=== PATIENT | male | born 1940 | race Caucasian/White ===

== ENCOUNTER 2020-12-09 07:43 | Emergency (ER) | payer OTHER ==
[~2020-12-09] VITALS: Ht 177.8 cm; Wt 83.9 kg
[~2020-12-09 07:43] MED LIST: BACTRIM DS TAB1 EACH PO; FLOMAX0.4 MG PO; HYDROCODONE-AP1 EAC6 PO; KEFLEX500 MG PO; SYNTHROID100 MCG
[2020-12-09] MEDS ORDERED: LISINOPRIL10 MG PO (07:55)
[2020-12-09] MEDS ORDERED: LUPRON DEPOT11.25 MG IM (07:56)
[2020-12-09] MEDS ORDERED: XGEVA120 MG/1.7 SUBQ (07:57)
[2020-12-09] MEDS ORDERED: XTANDI40 MG PO (07:58)
[2020-12-09] MEDS ORDERED: [UNRECOGNIZED DRUG - OTHER] (08:00)
[2020-12-09] MEDS ORDERED: AFRIN15 ML NASAL (08:28)
[2020-12-09 08:45] VITALS: BP 162/70
== END 2020-12-09 08:44 | disposition home or self-care (01) ==
LOC: M.ERS 07:43
DX: R04.0 Epistaxis (principal); I10 Essential (primary) hypertension; E03.9 Hypothyroidism, unspecified; Z85.830 Personal history of malignant neoplasm of bone

== ENCOUNTER 2020-12-11 06:59 | Emergency (ER) | payer OTHER ==
[~2020-12-11] VITALS: Ht 177.8 cm; Wt 83.9 kg
[~2020-12-11 06:59] MED LIST changes: +AFRIN15 ML NASAL; +LISINOPRIL10 MG PO; +LUPRON DEPOT11.25 MG IM; +XGEVA120 MG/1.7 SUBQ; +XTANDI40 MG PO; +[UNRECOGNIZED DRUG - OTHER]
[2020-12-11 07:51] LABS: ABSOLUTE LYMPHOCYTES 0.7 thou/uL (0.8-5.3); ABSOLUTE MONOCYTES 0.7 thou/uL (0.0-1.2); ABSOLUTE NEUTROPHILS 4.4 thou/uL (1.6-8.1); BASOPHILS 0.8 %; EOSINOPHILS 0.9 %; HEMOGLOBIN 10.2 gm/dL (14.0-18.0); LYMPHOCYTES 11.5 %; MCH 32.5 pg (26.0-34.0); MCV 95.7 fL (80.0-100.0); MONOCYTES 11.6 %; MPV 7.8 fl. (7.2-11.1); NUCLEATED RBCS 0 /100WBC; PLATELET COUNT* 68 thou/uL (150-400); POLYS 75.2 %; RBC 3.13 mil/uL (4.50-6.00); RDW-CV 17.2 % (10.5-14.5); WBC 5.8 thou/uL (4.0-11.0)
[2020-12-11 08:03] LABS: CALCIUM 8.5 mg/dL (8.5-10.1); CREATININE 1.3 mg/dL (0.6-1.3); POTASSIUM 4.3 mmol/L (3.5-5.1)
[2020-12-11 08:13] LABS: ALBUMIN 3.1 g/dL (3.4-5.0); TOTAL BILIRUBIN 0.4 mg/dL (<0.1-1.0); TOTAL PROTEIN 6.4 g/dL (6.4-8.2)
[2020-12-11 10:15] VITALS: BP 126/73
== END 2020-12-11 10:16 | disposition home or self-care (01) ==
LOC: M.ERS 06:59
PROVIDERS: Emergency Medicine
DX: R04.0 Epistaxis (principal); I10 Essential (primary) hypertension; E03.9 Hypothyroidism, unspecified; Z79.899 Other long term (current) drug therapy